=== PATIENT | female | born 1985 | race Caucasian/White ===

== ENCOUNTER 2023-03-10 09:55 | Emergency (ER) | payer OTHER, BC, SELFPAY ==
[2023-03-10 10:04] VITALS: BP 135/80; PULSE 89; RESP 20; TEMP 36.3; O2SAT 99
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
== END 2023-03-10 12:25 | disposition home or self-care (01) ==
LOC: ANHED 12:11
PROVIDERS: Emergency Provider Emergency Medicine; PCP Physician Assistant
DX: S16.1XXA Strain of muscle, fascia and tendon at neck level, initial encounter (principal); V49.40XA Driver injured in collision with unspecified motor vehicles in traffic accident, initial encounter
CPT/HCPCS: 99283

== ENCOUNTER 2024-12-19 14:15 | Emergency (ER) | payer BC, SELFPAY ==
--- NOTE | 2024-12-19 14:16 | ED_ITS ---
HPI - URI/Sore Throat General Chief Complaint: Upper Respiratory Infection Stated Complaint: Strep Symptoms Time Seen by Provider: 12/19/24 14:16 Source: patient Mode of arrival: ambulatory Limitations: no limitations History of Present Illness HPI Narrative: Christianne is a 39 year old female patient presenting to the clinic today with c/o possible strep throat. She reports she has been having headache, sore throat, and ear pain x2 days. Daughter tested positive for strep in the clinic today. She denies any fevers, chills, body aches. No other URI symptoms. Related Data Home Medications ?Medication ?Instructions ?Recorded ?Confirmed ?Last Taken ?Type metoprolol succinate 25 mg mg PO 03/10/23 Unknown His tory tablet,extended release 24 hr Allergies Allergy/AdvReac Type Severity Reaction Status Date / Time No Known Allergies Allergy Unverified 12/19/24 14:25 Review of Systems Review of Systems: Pertinent positives per HPI. Patient denies any fever, chills, rash, visual changes, dizziness, cough, shortness of breath, chest pain, palpitations, nausea, vomiting, diarrhea, constipation, abdominal pain, or any urinary issues. [facility] Past Medical History Medical History (Updated 12/19/24 @ 14:32 by Calixto Tompkins APRN) Anxiety Surgical History Surgical History (Updated 03/10/23 @ 18:53 by Alfred Henley MD) No pertinent past surgical history Social History Social History (System 04/05/19 @ 10:49 by Susi Diaz) Smoking status: Never smoker Second hand tobacco smoke exposure: Yes Comments At the time of my signature, I reviewed and agree with the nursing past medical, surgical, social, and family history. There is no relevant family history pertinent to the patient complaint. Exam Narrative: General: Well-developed, well nourished, in no apparent distress Head: Normocephalic, atraumatic Eyes: Pupils equally round and reactive to light bilaterally, EOM intact, sclera and conjunctive clear, no discharge, lids normal Ears: TMs intact and clear, ear canals clear, no drainage, grossly hearing normal. Nose: Nares patent, no discharge, no inflammation, no sinus tenderness. Mouth: Oral pharynx red without lesions or masses, good dentition, MMM. Neck: Supple, trachea midline, no enlargement of anterior or posterior cervical nodes, no thyroid masses or goiter palpable. Cardio: Regular rate and rhythm, s1 and s2 normal, no murmur appreciated. Resp: Clear to auscultation bilaterally, no rhonchi, rales, wheezing or rubs Course Course Emergency Course: Portions of this record may have been created with voice recognition software. Level of Care: Express Care Visit Vital Signs Vital signs: Vital Signs Temperature 36.4 C L 12/19/24 14:26 Pulse Rate 81 12/19/24 14:26 Respiratory Rate 16 12/19/24 14:26 Blood Pressure 111/86 12/19/24 14:26 Pulse Oximetry 100 12/19/24 14:26 Temperature 36.4 C L 12/19/24 14:26 Pulse Rate 81 12/19/24 14: Respiratory Rate 16 12/19/24 14:26 Blood Pressure 111/86 12/19/24 14:26 Pulse Oximetry 100 12/19/24 14:26 Vital signs reviewed MDM - URI/Sore Throat MDM Narrative Medical decision making narrative: At the time of visit patient is resting comfortably on the exam table. Patient appears to be nontoxic. C/o possible strep throat. She reports she has been having headache, sore throat, and ear pain x2 days. Daughter tested positive for strep in the clinic today. She denies any fevers, chills, body aches. No other URI symptoms. On exam patient's oropharynx is red without tonsillar enlargement, no cervical lymphadenopathy, TMs intact and clear. Strep test was ordered. Labs: Strep test was performed and negative in the clinic today. Plan: I suspect patient has viral pharyngitis. We will send strep for culture. Supportive measures were discussed with the patient and they voiced understanding discharge instructions and agrees to treatment plan. Return precautions reviewed Differential Diagnosis Differential diagnosis: Likely upper respiratory infection, otitis media, sinusitis, viral infection, bronchitis, influenza, pharyngitis and other (COVID) Lab Data Labs: Lab Results 12/19/24 Range/Units 14:31 POC Grp A Strep Screen Negative (Negative) Discharge Plan Discharge Clinical Impression: Pharyngitis Qualifiers: Pharyngitis/tonsillitis etiology: unspecified etiology Qualified Code(s): J02.9 - Acute pharyngitis, unspecified Patient Disposition: Home Condition: Stable Instructions: Antibiotic Form, Pharyngitis (ED) Additional Instructions: Strep test was negative in the clinic today. We will send strep for culture and if this comes back positive we will contact him place you on antibiotics at that time Increase fluids and stay well hydrated May take Tylenol or motrin as directed on bottle for pain/fever May use Flonase 1 spray in each nare daily May take OTC antihistamines such as Zyrtec or Claritin daily as directed on bottle May apply Vicks vapor rub to chest to open sinuses Sinus rinses for congestion Cepacol spray, cough drops, throat lozenges, warm tea with honey/lemon, gargle salt water to soothe throat BRAT diet for diarrhea Clear liquids x 24 hours then advance as tolerated for nausea/vomiting Go to the ED if you develop a worsening in your condition- high fever not controlled by Tylenol or Motrin, dehydration, weakness, lethargy, shortness of breath, or chest pain. Follow up with your PCP in 3-5 days if symptoms persist. Patient Language: Nigerien Prescriptions: No Action metoprolol succinate 25 mg tablet extended release 24 hr PO Follow-up/Referrals: UNKNOWN,DOCTOR [Non-Staff] Time of Disposition: 14:32 Quality NIHSS Nursing Documentation ED NIHSS nursing documentation: reviewed/agree
[2024-12-19 14:26] VITALS: BP 111/86; PULSE 81; RESP 16; TEMP 36.4; O2SAT 100
[2024-12-19 14:32] LABS: EDSTREPNEGPOS1 Negative (Negative)
== END 2024-12-19 14:32 | disposition home or self-care (01) ==
PROVIDERS: Emergency Provider Nurse Practitioner Family; PCP Physician Assistant
DX: J02.9 Acute pharyngitis, unspecified (principal); F41.9 Anxiety disorder, unspecified
CPT/HCPCS: 87081; 87880; 99213; G0463